=== PATIENT | female | born 2000 | race Caucasian/White ===

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

== ENCOUNTER → 2021-11-17 | Outpatient (CLI) | payer OTHER ==
--- NOTE | 2021-11-17 12:42 | Diagnostic Imaging Report ---
INDICATION: Right shoulder pain. FINDINGS: Three views of the right shoulder show no fracture, dislocation or other acute abnormalities. IMPRESSION: Negative right shoulder. Dictated by: Dictated on workstation # [id number]
== END ==
LOC: RAD 12:13
PROVIDERS: ATTEND Family Medicine
DX: M25.511 Pain in right shoulder (principal)
CPT/HCPCS: 73030

== ENCOUNTER 2022-08-29 13:09 | Emergency (ER) | payer OTHER ==
[~2022-08-29] VITALS: Ht 170.2 cm; Wt 70.0 kg
--- NOTE | 2022-08-29 13:34 | ED Back Pain ---
General Chief Complaint: Back Problems Stated Complaint: FELL; BACK AND LEFT HIP PAIN Source of Information: Patient Exam Limitations: No Limitations History of Present Illness Date Seen by Provider: Aug 29, 2022 Time Seen by Provider: 13:31 Initial Comments Patient is a 21-year-old female presents to the ED with back pain, left-sided rib pain. Patient states she fell at [facility]. She was going down the stairs holding a basket of items when she lost her footing fell down on her mid to lower back. She slid on the left side of her back. Denies hitting her head, loss of consciousness or neck pain. She also reports hitting the left side of her hip. She needed assistance to get up to a boot. She took Tylenol after the fall with very minimal improvement. She did take a muscle relaxer for her chronic shoulder pain last night without much improvement. She reports any pain with cytocide movement. She does have a contusion just left of her proximal and distal lumbar thoracic spine. She denies of any bowel or urine incontinence, saddle paresthesia, lower extremity weakness or sensory changes. No history of previous fracture. She also reports left-sided rib pain from the fall. Denies shortness of breath but pain with deep inspiration. Allergies and Home Medications Patient Home Medication List Home Medication List Reviewed: Yes Review of Systems Constitutional: No chills, No diaphoresis EENTM: No ear pain, No blurred vision, No double vision Respiratory: No cough, No dyspnea on exertion, No short of breath; other (rib pain) Cardiovascular: No chest pain Gastrointestinal: No abdominal pain, No diarrhea, No nausea, No vomiting Genitourinary: No decreased output Musculoskeletal: back pain; No joint pain; muscle pain Skin: change in color All Other Systems Reviewed Negative Unless Noted: Yes Physical Exam Vital Signs Capillary Refill : Height, Weight, BMI Height: '" Weight: lbs. oz. kg; BMI Method: General Appearance: No Apparent Distress, WD/WN HEENT: PERRL/EOMI, TMs Normal, Normal ENT Inspection, Pharynx Normal Neck: Full Range of Motion, Normal Inspection, Non Tender, Supple Cardiovascular: Regular Rate, Rhythm, No Edema, No Gallop, No JVD Respiratory: Lungs Clear, Normal Breath Sounds, No Accessory Muscle Use, Other (Left anterior lateral rib tenderness. No crepitus or step-off. No bruising or swelling) Gastrointestinal: Normal Bowel Sounds, No Organomegaly, No Pulsatile Mass, Non Tender Back: Vertebral Tenderness (Thoracic and lumbar midline tenderness. Left lumbar and thoracic paraspinal muscle tenderness. Small contusion noted lateral of the thoracic distal spine. Normal active range of motion) Extremity: Normal Capillary Refill, Normal Range of Motion, Other (Tenderness to left lateral posterior hip) Skin: Warm/Dry, Other (Bruising to the buttock. No tailbone tenderness) Progress/Results/Core Measures Results/Orders My Orders Orders - BEENA CURTIS PA Ct Thoracic/Lumbar Spine Wo (08/29/22 13:30) Chest Pa/Lat (2 View) (08/29/22 13:30) Hip, Left, 2 Views (08/29/22 13:32) Departure Communication (PCP) Patient fell down 20 steps last night. Landing on her middle to lower back. She has thoracic and lumbar midline tenderness. She has no cervical midline tenderness or head trauma or pain. GCS 15. Alert and orient x4. She also reports left lateral hip pain but able to ambulate. X-ray reviewed by myself negative for acute fracture. Left-sided rib tenderness. Chest x-ray was negative for pneumothorax, obvious rib fracture. CT scan of thoracic and lumbar spine read by myself concerning for T7, T8 and T9 left transverse process fracture. Read by radiologist confirms T7, T8 and T9 transverse process fracture. No vertebral body fracture, spinal canal stenosis or narrowing. Neurologically intact. No neurological red flag findings. Discussed patient with trauma surgeon Dr. Parsons regarding the fall and results from the CT scan. Recommends conservative treatment at this time. Did discuss TLSO brace for comfort. She requested a brace. Discussed how to use and instructions. Discussed spirometer. she took ibuprofen from her mother right before arrival. Refused anything for pain. Discussed limitations. Avoid heavy lifting over the next couple weeks greater than 10 pounds. Provided work note for a week. Discussed brace for comfort. Outpatient follow-up with primary care physician 2 to 3 days for reevaluation. If any worsening symptoms return back to ED for further evaluation. [id number] Tylenol or ibuprofen for pain. Return precaution were discussed with mother and patient. Impression Primary Impression: Fracture of thoracic transverse process Disposition: 01 HOME, SELF-CARE Condition: Stable Departure-Patient Inst. Decision time for Depature: 14:43 Referrals: DARIELA GRAYSON DO (PCP/Family) Primary Care Physician Patient Instructions: Fracture (DC) Add. Discharge Instructions: Fracture of T7, T8 and T9 thoracic transverse process fracture. Recommend conservative treatment. Weight as tolerated. Recommend rest for the next week. Avoid any strenuous activity or lifting greater than 10 pounds for the next couple weeks. Outpatient follow-up primary care physician. Anti- inflammatories, ice. Return back to ED if symptoms worsen such as worsening pain, bowel or urine cons, saddle paresthesia All discharge instructions reviewed with patient and/or family. Voiced understtraci ortega. Work/School Note: Work Release Form Date Seen in the Emergency Department: Aug 29, 2022 Return to Work: Sep 05, 2022 Restrictions: Avoid lifting greater than 10 pounds for the next 2 weeks. BEENA CURTIS Aug 29, 2022 13:34
--- NOTE | 2022-08-29 14:20 | Diagnostic Imaging Report ---
EXAMINATION: CT thoracic and lumbar spine without contrast. TECHNIQUE: Multiple contiguous axial images were obtained through the thoracic and lumbar spine without the use of intravenous contrast. Sagittal and coronal reformations were then performed. All CT scans use one or more of the following dose optimizing techniques: automated exposure control, MA and/or KvP adjustment based on patient size and exam type or iterative reconstruction. HISTORY: Back injury COMPARISON: None available. FINDINGS: There are left seventh, eighth and ninth transverse process fractures in the thoracic spine. The alignment of the thoracic and lumbar spine is normal. Vertebral body heights are normal. Facet joints are normal. Disk heights are normal. There is no spinal canal stenosis. Limited views of the soft tissues show no abnormality. The aorta is normal. IMPRESSION: 1. Left T7, T8 and T9 transverse process fractures. Dictated by: Dictated on workstation # [id number]
--- NOTE | 2022-08-29 14:22 | Diagnostic Imaging Report ---
INDICATION: Left hip pain, post fall TECHNIQUE: 2 views of the left hip. CORRELATION STUDY: None FINDINGS: Images of the hip demonstrate no evidence for acute fracture. Alignment is anatomic. The femoral head acetabular relationship is unremarkable. The bony trabecular pattern is intact. IMPRESSION: 1. Negative for acute bony abnormality of the left hip. Dictated by: Dictated on workstation # [id number]
--- NOTE | 2022-08-29 14:27 | Diagnostic Imaging Report ---
EXAMINATION: Chest 2 view HISTORY: Rib pain COMPARISON: None available. FINDINGS: The lungs are clear without edema or pneumonia. No pleural effusion or pneumothorax. Heart size is normal. IMPRESSION: 1. Clear lungs. Dictated by: Dictated on workstation # [id number]
[2022-08-29 15:33] VITALS: BP 114/72
== END 2022-08-29 15:33 | disposition home or self-care (01) ==
LOC: EDUNIT# 13:09 → ER 13:12
DX: S22.068A Other fracture of T7-T8 thoracic vertebra, initial encounter for closed fracture (principal); S22.078A Other fracture of T9-T10 vertebra, initial encounter for closed fracture; S30.0XXA Contusion of lower back and pelvis, initial encounter; M25.552 Pain in left hip; R07.81 Pleurodynia; Z28.310 Unvaccinated for COVID-19; W10.9XXA Fall (on) (from) unspecified stairs and steps, initial encounter; Y92.59 Other trade areas as the place of occurrence of the external cause; Y99.0 Civilian activity done for income or pay
CPT/HCPCS: 71046; 72128; 72131; 73502

== ENCOUNTER → 2022-09-17 | Outpatient (CLI) | payer OTHER ==
--- NOTE | 2022-09-17 16:25 | Diagnostic Imaging Report ---
INDICATION: History of thoracic spine fractures. COMPARISON: CT dated 08/29/2022 FINDINGS: Frontal and lateral views of the thoracic spine were obtained. Visualization of the upper thoracic spine is limited on the lateral projection. Previously described left T7, T8, and T9 transverse process fractures are inconspicuous on this exam. This is not unexpected given differences in modality. Thoracic vertebral body heights are preserved. No new vertebral body fracture is seen. Static alignment is maintained. Limited views of the lungs are clear. IMPRESSION: 1. Previously described left T7, T8, and T9 transverse process fractures are inconspicuous. 2. No new acute fracture or dislocation of the thoracic spine Dictated by: Dictated on workstation # [id number]
== END ==
LOC: RAD 14:01
PROVIDERS: ATTEND Family Medicine
DX: S22.069A Unspecified fracture of T7-T8 vertebra, initial encounter for closed fracture (principal); S22.079A Unspecified fracture of T9-T10 vertebra, initial encounter for closed fracture; X58.XXXA Exposure to other specified factors, initial encounter
CPT/HCPCS: 72072

== ENCOUNTER → 2022-10-28 | Outpatient (CLI) | payer OTHER ==
--- NOTE | 2022-10-28 16:28 | Diagnostic Imaging Report ---
INDICATION: Fracture. COMPARISON: Radiographs 09/17/[address] thoracic spine 08/29/2022. FINDINGS: Thoracic vertebral statures stable and normal, their alignment is anatomic. The multilevel mid thoracic left-sided transverse process fractures, well seen on earlier CT, are imperceptible at this exam. There is no finding to suggest a dislocation to the costovertebral articulations. No adverse development. IMPRESSION: Thoracic spine aligned anatomically with no visible fracture at today's study. Dictated by: Dictated on workstation # [id number]
== END ==
LOC: RAD 08:11
PROVIDERS: ATTEND Family Medicine
DX: S22.008A Other fracture of unspecified thoracic vertebra, initial encounter for closed fracture (principal); X58.XXXA Exposure to other specified factors, initial encounter
CPT/HCPCS: 72072

== ENCOUNTER → 2023-01-22 | Outpatient (CLI) | payer OTHER ==
--- NOTE | 2023-01-22 10:20 | Diagnostic Imaging Report ---
PROCEDURE: MRI lumbar spine. TECHNIQUE: Multiplanar, multisequence MRI of the lumbar spine was performed without contrast. INDICATION: New injury with more remote multilevel thoracic transverse process fractures, now with back pain. COMPARISON: No priors for direct comparison. The study however is correlated with lumbar CT 08/29/2022. Lumbar statures stable and normal. Their alignment is anatomic and the marrow signal intensity normal. No lumbar vertebral body or posterior element contusion or marrow edema. The ligamentous structures were intact. The conus normal. No paravertebral mass, hemorrhage or fluid collection. No acute epidural pathology. The patient's lumbar spinal canal, the neural foramina bilaterally and the bilateral lateral recesses all widely patent. IMPRESSION: Normal MRI lumbar spine. Dictated by: Dictated on workstation # [id number]
--- NOTE | 2023-01-22 10:22 | Diagnostic Imaging Report ---
EXAMINATION: Thoracic spine three views. HISTORY: Fracture. COMPARISON: 10/28/2022. FINDINGS: Alignment is normal. Vertebral body heights are normal. Disc spaces are normal. No acute fracture is seen. IMPRESSION: 1. No fracture is seen. Dictated by: Dictated on workstation # [id number]
--- NOTE | 2023-01-22 10:22 | Diagnostic Imaging Report ---
EXAMINATION: Lumbosacral spine 2 or 3 views HISTORY: Fracture COMPARISON: None available. FINDINGS: Alignment is normal. No fracture is seen. Vertebral body heights are normal. Disc spaces are normal. IMPRESSION: 1. No fracture is seen in the lumbar spine. Dictated by: Dictated on workstation # [id number]
--- NOTE | 2023-01-22 13:26 | Diagnostic Imaging Report ---
Pain and swelling CORRELATED with CT thoracic 08/29/2022. Thoracic vertebral statures are stable and normal. Vertebral body marrow signal intensity in the pedicles and pars were intact. No edema is associated with the sites of previous nondisplaced left-sided thoracic transverse process fractures. No paraspinal hemorrhage. No dislocation of the costovertebral junctions. The ligamentous structures were intact. There is no paraspinal hemorrhage, no acute epidural collection. The thoracic spinal cord has a normal volume morphology and signal intensity. No traumatic disc herniation. The spinal canal and neural foramen are all widely patent at each vertebral body and disc space level. IMPRESSION: Unremarkable MRI thoracic spine. Dictated by: Dictated on workstation # [id number]
== END ==
LOC: RAD 08:18
PROVIDERS: ATTEND Family Medicine
DX: S22.060A Wedge compression fracture of T7-T8 vertebra, initial encounter for closed fracture (principal); X58.XXXA Exposure to other specified factors, initial encounter
CPT/HCPCS: 72072; 72100; 72146; 72148